=== PATIENT | female | born 1935 | race Caucasian/White ===

== ENCOUNTER 2019-01-21 07:44 | Day surgery (SDC) | payer MEDICARE ==
[~2019-01-21] VITALS: Ht 162.6 cm; Wt 68.0 kg
[~2019-01-21 07:44] MED LIST: ACET500 PO; ALLO300 PO; ASPI325 PO; ASPI81CH PO; ASPI81EC PO; BACL10 PO; CEPH500 PO; CHOLESTEROL MED; CITA20 PO; CYCL10 PO; DIAZ5 PO; Dyazide 37.5-21 EACH; FISH1000 PO; FLUO20 PO; HYDACE5 PO; LEVFLO500 PO; LORA1 PO; METF850 PO; METPRE4DP PO; Norco 5-325 Ta1 EACH PO; OMEP20ER PO; OXYACE5T PO; OXYC10ER PO; OXYC5; POTA10T PO; POTASSIUM; POTCIT5 PO; Pepcid20 MG PO; Prednisone20 MG PO; Prinivil10 MG PO; RXHYD5325 PO; SIMV40 PO; SIMVASTATIN; SUDOGEST; Synthroid25 MCG PO; TRAM50 PO; TRIHYD5075 PO; Zocor20 MG; Zofran8 MG PO; [UNRECOGNIZED DRUG - OTHER] PO; [UNRECOGNIZED DRUG - REMARK]; [UNRECOGNIZED DRUG - REMARK]
--- NOTE | 2019-01-21 08:25 | NUR ---
Aspirin 325 mg and Plavix 300 mg po given per order.
[2019-01-21] MEDS ORDERED: ASPI81CH (08:26)
[2019-01-21] MEDS ORDERED: AMLO10 (08:26)
[2019-01-21] MEDS ORDERED: B-121000 MC2 (08:26)
[2019-01-21] MEDS ORDERED: OXYB5 (08:27)
[2019-01-21] MEDS ORDERED: POTCHL20ER (08:27)
[2019-01-21] MEDS ORDERED: VENL75ER (08:27)
[2019-01-21] MEDS ORDERED: METO25 (08:37)
[2019-01-21] MEDS ORDERED: BUSP10 (08:37)
[2019-01-21] MEDS ORDERED: DIAZ5EL (08:38)
[2019-01-21] MEDS ORDERED: GABA100 (08:38)
[2019-01-21] MEDS ORDERED: OMEPRAZOLE20 MG (08:39)
[2019-01-21] MEDS ORDERED: MELO7.5 (08:39)
--- NOTE | 2019-01-21 14:38 | NUR ---
PT TR BAND REMOVED, DRESSING PLACED, R WRIST SPLINT, R ARM SLING PLACED, PT DC'D W FAMILY DRIVING PT HOME, PT CHOOSES TO AMBULATE OUT
== END 2019-01-21 14:44 | disposition home or self-care (01) ==
LOC: MHTC 07:44
DX: I25.10 Atherosclerotic heart disease of native coronary artery without angina pectoris (principal); I10 Essential (primary) hypertension; E11.9 Type 2 diabetes mellitus without complications; E78.5 Hyperlipidemia, unspecified; F32.9 Major depressive disorder, single episode, unspecified; Z87.891 Personal history of nicotine dependence; Z79.899 Other long term (current) drug therapy; Z79.82 Long term (current) use of aspirin
CPT/HCPCS: 93454; 99152; 99153; C1769; C1894; J1644; J2250; J3010; J7030; Q9967